=== PATIENT | male | born 1960 | race Caucasian/White ===

== ENCOUNTER → 2019-07-01 10:57 | Outpatient (CLI) | payer OTHER, SELFPAY ==
--- NOTE | 2019-07-01 11:04 | DI.RAD.S_ITS ---
PROCEDURE: XR LUMBAR SPINE MIN 4V INDICATIONS: Progressive lower extremity paresthesias TECHNIQUE: 4 views of the lumbar spine were acquired. COMPARISON: None. FINDINGS: Bones: 5 nonrib-bearing vertebrae are present. There is normal bony alignment. No vertebral body compression fractures. No suspicious bony lesions. Degenerative disc disease results in lateral projecting osteophytes most prominent bridging L1-L2 on the left. Disc height reduction is mild to moderate from L3 inferiorly and facet osteoarthritis becomes progressively more prominent from L3-S1. Soft tissues: Overlying bowel gas pattern is normal. No suspicious soft tissue calcifications. Oblique images: No pars defects. IMPRESSION: Degenerative disc disease and facet osteoarthritis to the degree that significant spinal and foraminal stenosis likely is present, especially from L3-S1. Depending on the clinical status followup by MR scanning may be warranted. Dictated by: Delta Campuzano M.D. on 07/01/2019 at 12:36 Approved by: Delta Campuzano M.D. on 07/01/2019 at 12:37
--- NOTE | 2019-07-01 11:04 | DI.RAD.S_ITS ---
PROCEDURE: XR FOOT RT 2V INDICATIONS: Progressive lower extremity paresthesias TECHNIQUE: 3 views of the foot were acquired. COMPARISON: None. FINDINGS: Bones: No fractures or dislocations. No suspicious bony lesions. Pes planus is prominent. Soft tissues: No tibiotalar joint effusion. Achilles tendon appears normal. IMPRESSION: Prominent pes planus, note prior trauma found. Dictated by: Delta Campuzano M.D. on 07/01/2019 at 12:34 Approved by: Delta Campuzano M.D. on 07/01/2019 at 12:35
--- NOTE | 2019-07-01 11:04 | DI.RAD.S_ITS ---
PROCEDURE: XR FOOT LT 2V INDICATIONS: Progressive lower foot paresthesias with pes planus TECHNIQUE: 3 views of the foot were acquired. COMPARISON: None. FINDINGS: Bones: No fractures or dislocations. No suspicious bony lesions. Pes planus, slightly less than that seen on the right by plain film imaging also today. Soft tissues: No tibiotalar joint effusion. Achilles tendon appears normal. IMPRESSION: Mild pes planus. Pes planus is greater on the right than the left. Dictated by: Delta Campuzano M.D. on 07/01/2019 at 12:35 Approved by: Delta Campuzano M.D. on 07/01/2019 at 12:36
[2019-07-01 11:47] LABS: Erythrocyte Sedimentation Rate 6 MM/HR (0-15)
[2019-07-01 12:15] LABS: C-Reactive Protein Quant 0.6 mg/dL (<1.0)
[2019-07-01 12:19] LABS: Rheumatoid Factor < 8.6 IU/mL (<12.0)
[2019-07-01 12:29] LABS: Vitamin D 25 Hydroxy (D3) 42.6 ng/mL (30.0-100.0)
[2019-07-01 12:45] LABS: TSH w/ Reflex to FT4 0.96 uIU/mL (0.47-4.68)
[2019-07-01 13:09] LABS: Vitamin B12 530 pg/mL (239-931)
== END ==
PROVIDERS: PCP Family Medicine; Visit Provider Physical Medicine & Rehabilitation
DX: R20.2 Paresthesia of skin (principal); M21.42 Flat foot [pes planus] (acquired), left foot; M21.41 Flat foot [pes planus] (acquired), right foot; M47.27 Other spondylosis with radiculopathy, lumbosacral region; G62.9 Polyneuropathy, unspecified
CPT/HCPCS: 36415; 72110; 73620; 82306; 82607; 84443; 85651; 86140; 86430

== ENCOUNTER 2019-07-25 10:36 | Outpatient (CLI) | payer OTHER, SELFPAY | END 2019-07-26 11:27 | disposition home or self-care (01) | PROVIDERS: PCP Family Medicine; Referring Provider Family Medicine; Visit Provider Family Medicine | DX: G62.9 Polyneuropathy, unspecified (principal) | CPT/HCPCS: 95886; 95912 ==

== ENCOUNTER → 2022-07-05 09:09 | Outpatient (CLI) | payer OTHER, SELFPAY ==
--- NOTE | 2022-07-05 | DI.US.S_ITS ---
PROCEDURE: US THYROID INDICATIONS: THYROID NODULE TECHNIQUE: Real-time scanning was performed of the thyroid gland, with image documentation. COMPARISON: None. FINDINGS: Right: Thyroid lobe measures 4.8 x 1.7 x 1.7 cm, and is homogeneous in echotexture. Left: Thyroid lobe measures 5.0 x 1.3 x 1.3 cm, and is homogenous in echotexture. Isthmus: 3 mm thick. Nodule number: 1 Location: Right superior Size: 1.1 x 0.7 x 1.1 cm. Composition: Solid Echogenicity: Hypoechoic Shape: wider than tall. Margins: Irregular Echogenic foci: None Total points: 6 ACR TI-RADS category: 4 Nodule number: 2 Location: Right inferior Size: 0.7 x 0.8 x 0.6 cm. Composition: Solid Echogenicity: Hypoechoic Shape: wider than tall. Margins: Smooth Echogenic foci: Punctate Total points: 7 ACR TI-RADS category: 5 IMPRESSION: 2 nodules are identified in the right thyroid lobe. Recommend ultrasound follow-up. Please see enclosed follow-up recommendation. ACR TI-RADS definitions and recommendations: TI-RADS 1 (benign): 0 points. FNA not needed. TI-RADS 2 (not suspicious): 2 points. FNA not needed. TI-RADS 3 (mildly suspicious): 3 points. * FNA if 2.5 cm or larger, follow up if 1.5 cm or larger (at 1, 3, and 5 years). TI-RADS 4 (moderately suspicious): 4-6 points. * FNA if 1.5 cm or larger, follow up if 1 cm or larger (at 1, 2, 3, and 5 years). TI-RADS 5 (highly suspicious): 7 points or more. * FNA if 1 cm or larger, follow up if 0.5 cm or larger (every year for 5 years). Dictated by: Norma Dewitt M.D. on 07/05/2022 at 12:15 Approved by: Norma Dewitt M.D. on 07/05/2022 at 12:21
== END ==
PROVIDERS: PCP Family Medicine; Referring Provider Family Medicine; Visit Provider Family Medicine
DX: E04.2 Nontoxic multinodular goiter (principal)
CPT/HCPCS: 76536

== ENCOUNTER → 2024-03-01 09:45 | Outpatient (CLI) | payer OTHER, SELFPAY ==
--- NOTE | 2024-03-01 09:46 | DI.US.S_ITS ---
PROCEDURE: US ABDOMEN LIMITED INDICATIONS: ELEVATED LIVER ENZYMES TECHNIQUE: Real-time focused scanning was performed of the abdomen, with image documentation. COMPARISON: None. FINDINGS: The liver demonstrates mildly enlarged size. The liver demonstrates generalized moderately increased echogenicity. This decreases ultrasound sensitivity for detection of hepatic masses. No findings of gallstones or sludge are seen. The gallbladder wall is not thickened, measuring 3 mm or less. No specific pericholecystic fluid is seen. The sonographic Sidhu sign is negative. There is no biliary dilatation, the common bile duct measures 6 mm. No significant pancreatic abnormality is seen on these images. This study is limited by body habitus and bowel gas. IMPRESSION: The liver demonstrates increased echogenicity. This finding is nonspecific, yet it is most commonly attributed to fatty infiltration. Dictated by: Emory Garcia M.D. on 03/01/2024 at 16:53 Approved by: Emory Garcia M.D. on 03/01/2024 at 16:54
== END ==
PROVIDERS: PCP Family Medicine; Referring Provider Physician Assistant; Visit Provider Physician Assistant
DX: R74.8 Abnormal levels of other serum enzymes (principal)
CPT/HCPCS: 76705

== ENCOUNTER → 2025-04-17 07:26 | Outpatient (CLI) | payer OTHER, SELFPAY ==
--- NOTE | 2025-04-17 07:29 | DI.US.S_ITS ---
PROCEDURE: US EXTREMITY NONVASC LOWER LT INDICATIONS: subcutaneous mass TECHNIQUE: Real-time scanning was performed of the left desai, with image documentation. COMPARISON: None. FINDINGS/IMPRESSION: At patient's area of concern, in the left chin, there is a mildly complex cystic lesion in the deep subcutaneous fat, measuring 2.5 x 0.8 by 3.0 cm, nonspecific and may represent a chronic hematoma versus a fluid collection. Sterility cannot be established based on imaging. Dictated by: Marixa Dobbins M.D. on 04/17/2025 at 14:06 Approved by: Marixa Dobbins M.D. on 04/17/2025 at 14:09
== END ==
LOC: US 07:28
PROVIDERS: PCP Physician Assistant; Referring Provider Physician Assistant; Visit Provider Physician Assistant
DX: R22.42 Localized swelling, mass and lump, left lower limb (principal)
CPT/HCPCS: 76882